=== PATIENT | female | born 2000 | race Hispanic/Latino ===

== ENCOUNTER 2018-08-28 00:33 | Emergency (ER) | payer MEDICARE ==
[~2018-08-28] VITALS: Ht 165.1 cm; Wt 84.4 kg
--- OUTSIDE RECORDS SUMMARY | 2018-08-28 00:35 | XMS REPORT ---
[facility] Address Unknown Phone Unavailable Care Team Providers Care Outside Production Inspector Name Role Phone Unavailable Unavailable Payers Payer Name Policy Type Policy Number Effective Date Expiration Date Problems This patient has no known problems. Allergies, Adverse Reactions, Alerts Allergy Name Allergy Type Status Severity Reaction(s) Onset Date Inactive Date Treating Clinician Comments No Known Allergies DA Active U 2018-08-27 00:00:00 No Known Drug Intolerances DA Active U 2010-06-10 00:00:00 Medications This patient has no known medications.
[2018-08-28] MEDS ORDERED: SODIUM CHLORIDE 0.9% 1000ML 1,000 ML IV STA ×2 (00:38→01:20)
[2018-08-28] MEDS ORDERED: PROMETHAZINE 12.5MG/ NACL 0.9% 12.5 MG/50 ML BAG IV ONE (00:45)
[2018-08-28] MEDS ORDERED: FAMOTIDINE 20 MG/2 ML VIAL IV ONE (00:45)
[2018-08-28] MEDS ORDERED: KETOROLAC TROMETHAMINE 30 MG/ML VIAL IV ONE (00:45)
--- NOTE | 2018-08-28 01:52 | Diagnostic Imaging Report ---
EXAM: CT Abdomen and Pelvis WITH contrast INDICATION: Left lower quadrant abdominal pain. COMPARISON: None. TECHNIQUE: Abdomen and pelvis were scanned utilizing a multidetector helical scanner from the lung base to the pubic symphysis after administration of IV contrast. Coronal and sagittal reformations were obtained. Routine protocol was performed. Scan was performed when during portal venous phase. IV CONTRAST: 100 mL of Isovue 370 ORAL CONTRAST: Water COMPLICATIONS: None RADIATION DOSE: Total DLP: 825 mGy*cm Estimated effective dose: (DLP x 0.015 x size factor) mSv CTDIvol has been reviewed. It is below the limits set by the Radiation Protocol Committee (RPC). Dose modulation, iterative reconstruction, and/or weight based adjustment of the mA/kV was utilized to reduce the radiation dose to as low as reasonably achievable. FINDINGS: LINES and TUBES: None. LOWER THORAX: Unremarkable HEPATOBILIARY: No focal hepatic lesions. No biliary ductal dilation. GALLBLADDER: No radio-opaque stones or sludge. No wall thickening. SPLEEN: No splenomegaly. PANCREAS: No focal masses or ductal dilatation. ADRENALS: No adrenal nodules KIDNEYS/URETERS: Kidneys enhance symmetrically. No hydronephrosis. No cystic or solid mass lesions. No stones. GI TRACT: No abnormal distention, wall thickening, or evidence of bowel obstruction. Small bowel is fluid-filled and mildly distended up to 2.2 cm with areas of mild wall thickening. Appendix is normal. PELVIC ORGANS/BLADDER: Unremarkable. LYMPH NODES: Several scattered prominent mesenteric lymph nodes measure up to 0.9 cm in short axis (series 2, image 46). VESSELS: Unremarkable. PERITONEUM / RETROPERITONEUM: No free air or fluid. BONES: Unremarkable. SOFT TISSUES: Unremarkable. IMPRESSION: 1. Fluid-filled small bowel loops, which may represent enteritis. There is associated prominent mesenteric lymph nodes. 2. Normal appendix and colon. Signed by: Dr. Fred Ferguson M.D. on 08/28/2018 1:49 AM
[2018-08-28] MEDS ORDERED: MORPHINE SULFATE INJ 4 MG/ML INJ 1ML IV STA (02:05)
[2018-08-28] MEDS ORDERED: ONDANSETRON HCL INJ 2MG/ML 2ML 2 MG/ML VIAL IV ONE (02:15)
[2018-08-28 02:23] VITALS: BP 133/73
== END 2018-08-28 02:35 | disposition home or self-care (01) ==
LOC: FSED 00:33
DX: R10.84 Generalized abdominal pain (principal); K52.9 Noninfective gastroenteritis and colitis, unspecified; E86.0 Dehydration
CPT/HCPCS: 36415; 74177; 80076; 80048; 81003; 81025; 83690; 85025; 96374; 96375; 99284; J2550; J7030

== ENCOUNTER 2019-12-05 11:50 | Emergency (ER) | payer MEDICARE ==
[~2019-12-05] VITALS: Ht 170.2 cm; Wt 68.0 kg
--- NOTE | 2019-12-05 12:37 | Emergency Department Note ---
History of Present Illnes History of Present Illness Chief Complaint: Abdominal Complaints History of Present Illness This is a 19 year old female, with a history of anxiety, who presents with a 2 day history of vomiting, after eating or drinking anything. She has not had any fever, chills, cough, URI symptoms, diarrhea, abdominal pain, or dysuria. There are no known sick contacts. Historian: Patient Arrival Mode: Car Dials Inspector Required: No Onset (how long ago): day(s) (2) Location: abdomen Quality: nausea Radiation: Reports non-radiation Severity: moderate Onset quality: sudden Duration (how long): day(s) (2) Timing of current episode: intermittent Progression: unchanged Chronicity: new Context: Denies recent illness, Denies recent surgery, Denies recent travel, Denies new medications Relieving factors: none Exacerbating factors: eating Associated symptoms: Reports loss of appetite, Reports nausea/vomiting; Denies chest pain, Denies cough, Denies fever/chills, Denies headaches, Denies rash, Denies shortness of breath Treatments prior to arrival: none Past Medical/Family History Physician Review I have reviewed the patient's past medical and family history. Any updates have been documented here. Past Medical History Recent Fever: No Clinical Suspicion of Infectio: No New/Unexplained Change in Ment: No Past Medical History: Anxiety Past Surgical History: None Social History Smoking Cessation: Never Smoker Alcohol Use: None Any Illegal Drug Use: No TB Exposure/Symptoms: No Physically hurt or threatened: No Family History Family history of heart diseas: No Other Any Pre-Existing Lines (PICC,: No Is patient up to date on immun: Yes Review of Systems Review of Systems Constitutional: Reports chills, Reports fever EENTM: Reports no symptoms Cardiovascular: Reports chest pain, Reports palpitations Respiratory: Reports cough, Reports dyspnea Gastrointestinal: Reports abdominal pain, Reports diarrhea, Reports nausea, Reports vomiting Genitourinary: Denies discharge, Denies dysuria, Denies frequency Musculoskeletal: Reports no symptoms Integumentary: Reports no symptoms Neurological: Reports no symptoms Psychological: Reports no symptoms Review of other systems: All other systems negative Physical Exam Related Data Allergies: Coded Allergies: No Known Allergies (Unverified , 08/28/18) Vital signs reviewed: Yes Physical Exam CONSTITUTIONAL Constitutional: Present well-developed, Present well-nourished, Present ill appearing; Absent distressed HENT HENT: Present normocephalic, Present atraumatic, Present oropharynx eliza ar/moist, Present nose normal HENT L/R: Present left ext ear normal, Present right ext ear normal EYES Eyes: Reports PERRL, Reports conjunctivae normal NECK Neck: Present ROM normal PULMONARY Pulmonary: Present effort normal, Present breath sounds normal CARDIOVASCULAR Cardiovascular: Present regular rhythm, Present heart sounds normal, Present capillary refill normal, Present normal rate GASTROINTESTINAL Abdominal: Present soft, Present nontender, Present bowel sounds normal; Absent distension, Absent tender, Absent guarding GENITOURINARY Genitourinary: Present exam deferred SKIN Skin: Present warm, Present dry; Absent rash MUSCULOSKELETAL Musculoskeletal: Present ROM normal NEUROLOGICAL Neurological: Present alert, Present oriented x 3, Present no gross motor or sensory deficits PSYCHOLOGICAL Psychological: Present mood/affect normal, Present judgement normal Results Laboratory Laboratory CBC - normal; CMP - nl except for K+ = 3.4; UPT - negative; UA - gordy - mod, ket > 160 mg/dl, SG = 1.030 ph = 6.5; Lab results reviewed: Yes Assessment & Plan Medical Decision Making MDM - You were treated for dehydration today in the ED, secondary to persistent vomiting. Symptoms may be due to gastritis or a viral infection. He received IV fluids and medications for nausea. - Lab work was performed, including a urinalysis. The lab work was within normal limits and the urinalysis showed signs of dehydration and lack of eating for prolonged period of time. - Following discharge from the ED, recommend that you drink small amounts of fluids frequently, consisting of Pedialyte, water, or Gatorade. Would recommend that you avoid juice or sodas, until the symptoms have completely resolved. - You did tolerate drinking water, prior to discharge. - This evening, you may try taking some broth or soup in small amounts. If you tolerate this, you may try having a few crackers. Tomorrow, would begin to follow a BLAND diet, avoiding all fried, fatty, fast, and spicy foods. Would recommend things like baked chicken, scrambled eggs, toast, jello, steamed rice, and similar foods. Assessment & Plan Final Impression: (1) Nausea and vomiting (2) Gastritis (3) Anxiety Depart Disposition: HOME, SELF-prison Meds Active Scripts Famotidine (FAMOTIDINE) 20 Mg Tab, 20 MG PO BID for gastritis for 10 Days, #20 TAB 0 Refills Prov:BELGICA VASQUEZ MD 12/05/19 Ondansetron (ONDANSETRON ODT) 8 Mg Tab.rapdis, 4 MG PO Q6H PRN for nausea and vomiting, #20 TAB 0 Refills Prov:BELGICA VASQUEZ MD 12/05/19 BELGICA VASQUEZ MD Dec 05, 2019 12:37
[2019-12-05] MEDS ORDERED: FAMOTIDINE 20 MG/2 ML VIAL IV STA (12:40)
[2019-12-05] MEDS ORDERED: ONDANSETRON HCL INJ 2MG/ML 2ML 2 MG/ML VIAL IV STA (12:40)
[2019-12-05] MEDS ORDERED: SODIUM CHLORIDE 0.9% 1000ML 1,000 ML IV SCH (12:45)
[2019-12-05] MEDS ORDERED: SODIUM CHLORIDE 0.9% 1000ML 1,000 ML ONE ×2 (13:30→15:04)
[2019-12-05] MEDS ORDERED: FAMOTIDINE 20 MG/2 ML VIAL IV ONE (13:30)
[2019-12-05] MEDS ORDERED: ONDANSETRON HCL INJ 2MG/ML 2ML 2 MG/ML VIAL ONE (13:30)
[2019-12-05] MEDS ORDERED: SODIUM CHLORIDE 0.9% 1000ML 1,000 ML IV STA (14:55)
[2019-12-05] MEDS ORDERED: METOCLOPRAMIDE HCL 10 MG/2ML VIAL IV ONE (15:00)
[2019-12-05] MEDS ORDERED: ONDANSETRON ODT8 MG PO (16:19)
[2019-12-05] MEDS ORDERED: FAMOTIDINE20 MG PO (16:30)
== END 2019-12-05 16:45 | disposition home or self-care (01) ==
LOC: FSED 12:30
DX: R11.2 Nausea with vomiting, unspecified (principal); K29.70 Gastritis, unspecified, without bleeding; F41.9 Anxiety disorder, unspecified
CPT/HCPCS: 80053; 81003; 81025; 85025; 96374; 96375; 96376; 99284; J2405; J2765; J7030

== ENCOUNTER 2025-01-05 05:57 | Emergency (ER) | payer MEDICARE, MEDICAID ==
[~2025-01-05] VITALS: Ht 170.2 cm; Wt 80.7 kg
[~2025-01-05 05:57] MED LIST: FAMOTIDINE20 MG PO; ONDANSETRON ODT8 MG PO
[2025-01-05 06:10] VITALS: PULSE 70; RESP 18; TEMP 98.5
[2025-01-05] MEDS: ONDANSETRON HCL INJ 2MG/ML 2ML 2 MG/ML VIAL IV STA (06:55)
[2025-01-05] MEDS ORDERED: IOPAMIDOL 370 MG/ML 100 ML INFUS..BTL INJ ONE (06:55)
[2025-01-05] MEDS: SODIUM CHLORIDE 0.9% 1000ML 1,000 ML IV ONE (06:56)
[2025-01-05] MEDS ORDERED: ONDANSETRON ODT4 MG PO (08:43)
[2025-01-05] MEDS ORDERED: PEPCID20 MG PO (08:44)
[2025-01-05 08:59] VITALS: BP 121/74; PULSE 69; RESP 16; TEMP 97.7; O2SAT 99
== END 2025-01-05 08:58 | disposition home or self-care (01) ==
LOC: FSED 06:32
DX: R11.2 Nausea with vomiting, unspecified (principal); F41.9 Anxiety disorder, unspecified
CPT/HCPCS: 74177; 81003; 81025; 96374; 99283; J2405; J7030; Q9967